=== PATIENT | female | born 1965 | race Caucasian/White ===

== ENCOUNTER 2021-06-07 11:59 | Emergency (ER) | payer BC, SELFPAY ==
[2021-06-07 12:44] VITALS: BP 124/72; PULSE 82; RESP 18; TEMP 36.9; O2SAT 95; BMI 31.6
--- NOTE | 2021-06-07 13:28 | HMH.EDUTC ---
[facility] [place] Clinical Impression: COVID-19 Sinusitis Qualifiers: Sinusitis location: unspecified location Chronicity: acute Recurrence: non-recurrent Qualified Code(s): J01.90 - Acute sinusitis, unspecified Disposition: Home, Self-Care Condition on Discharge: Good Instructions: DI for Sinusitis, DI for COVID-19 (Suspected or Confirmed ), Preventing the Spread of Coronavirus Discharge Instructions Additional Instructions: Drink plenty of fluids. Take tylenol or ibuprofen for pain or fever. Take the medications as directed. Follow up with your regular doctor. GO TO THE ER FOR ANY WORSENING SYMPTOMS Quarantine until you know the results of your covid-19 test. If it is positive, the health department should call you and give you further instructions about your length of Quarantine and other things. Notify your school or workplace of your results and follow their instructions regarding return to work/school. The cough medication (promethazine dm) will make you drowsy, so don't drive or operate heavy machinery after taking it. Prescriptions: Promethazine/Dextromethorphan [Promethazine-Dm Syrup] 5 ml PO Q6HP PRN #240 ml PRN Reason: Cough Transmission Status: Received by [facility] # Fluconazole [Diflucan 150mg tab] 150 mg PO ONCE #1 tab Transmission Status: Received by [facility] # guaiFENesin [Mucinex 600mg tablet] 1 - 2 tab PO BIDP PRN #30 tab PRN Reason: Congestion Transmission Status: Received by [facility] # Azithromycin [Z-Naga 250mg Tab*] 250 mg PO UD DOSE PK #6 tab Transmission Status: Received by [facility] #[id number] Referrals: Tylor Bearden [Primary Care Provider] - Time of Disposition: 14:05 Medical Decision Making - Medical Records Medical records reviewed: No: I reviewed the patient's medical records. - Álvaro Inquiry Pt receiving controlled substance: No Vital Signs: 06/07/21 12:44 06/07/21 14:22 Temperature 98.4 F 98.4 F Temperature Source Oral Pulse Rate 82 Pulse Rate [Left] 82 Respiratory Rate 18 18 Blood Pressure 124/72 Blood Pressure [Right Arm] 124/72 Blood Pressure Mean [Right Arm] 89 02 Sat by Pulse Oximetry 95 - Lab Data Lab results reviewed: Yes: I reviewed the patient's lab results. [facility] [place] H[place] - General Stated complaint: cough, runny nose, headache, congestion. covid exp Time Seen by Provider: 06/07/21 13:29 Mode of Arrival: Ambulatory Source of Information: Patient Limitations: No Limitations Description of Symptoms (Recalled from Triage Doc. by RN): pt c/o a productive cough with green sputum, n/v/ and drainage. HEENT Symptoms (Recalled from RN notes): Yes (drainage) Resp Symptoms (Recalled from RN notes): Yes (productive cough with green sputum) Skin Symptoms (Recalled from RN notes): No MS Symptoms (Recalled from RN notes): No Functional Status (Recalled from RN notes): wn - History of Present Illness Provider Complaint: She started feeling bad and having sinus congestion 2 days ago. She has ran a low grade fever also. She denies chest congestion. She tested positive for covid-19 yesterday on a rapid covid test. Her also has covid-19 at this time. - Related Data Previous Rx's Medication Instructions Recorded Azithromycin [Z-Naga 250mg Tab*] 250 mg PO UD DOSE PK #6 tab 06/07/21 Fluconazole [Diflucan 150mg tab] 150 mg PO ONCE #1 tab 06/07/21 Promethazine/Dextromethorphan 5 ml PO Q6HP PRN #240 ml 06/07/21 [Promethazine-Dm Syrup] guaiFENesin [Mucinex 600mg tablet] 1 - 2 tab PO BIDP PRN #30 tab 06/07/21 Allergies Allergy/AdvReac Type Severity Reaction Status Date / Time Penicillins Allergy Verified 06/07/21 13:03 - Worker's Comp Is this a Worker's Comp case?: No [facility] History - Hepatitis A Screen Drug use history?: No High risk sexual behaviors?: No History of sexually transmitted infection?: No Currently employed?: No Childcare worker?: No Do y
[2021-06-07 14:22] VITALS: BP 124/72; PULSE 82; RESP 18; TEMP 36.9
== END 2021-06-07 14:36 | disposition home or self-care (01) ==
PROVIDERS: Emergency Provider Nurse Practitioner Family; PCP Family Medicine
DX: U07.1 COVID-19 (principal); J01.90 Acute sinusitis, unspecified
CPT/HCPCS: 99202; G0463

== ENCOUNTER → 2021-06-11 08:38 | Outpatient (CLI) | payer BC, SELFPAY ==
[2021-06-11] VITALS (7 sets, daily range): BP systolic 107–115; BP diastolic 53–82; PULSE 66–83; RESP 18; O2SAT 92–98
== END ==
PROVIDERS: Visit Provider Emergency Medicine
DX: U07.1 COVID-19 (principal); Z23 Encounter for immunization
CPT/HCPCS: 96365